=== PATIENT | female | born 1990 | race Hispanic/Latino ===

== ENCOUNTER 2022-01-09 10:10 | Emergency (ER) | payer SELFPAY ==
[2022-01-09] MEDS ORDERED: Clindamycin 150 MG CAP ONE (10:49)
[2022-01-09] MEDS ORDERED: traMADol HCl 50 MG TAB ONE (10:49)
== END 2022-01-09 10:55 | disposition home or self-care (01) ==
LOC: NAV ERS 10:10
DX: L73.2 Hidradenitis suppurativa (principal); L03.114 Cellulitis of left upper limb; F17.210 Nicotine dependence, cigarettes, uncomplicated
CPT/HCPCS: 87070; 87205; 99283

== ENCOUNTER 2022-01-24 11:52 | Emergency (ER) | payer SELFPAY ==
[2022-01-24] MEDS ORDERED: Ibuprofen 800 MG TAB ONE (12:13)
[2022-01-24] MEDS ORDERED: Ondansetron ODT 4 MG TAB ONE (12:16)
== END 2022-01-24 13:42 | disposition home or self-care (01) ==
LOC: NAV ERS 11:52
DX: B34.9 Viral infection, unspecified (principal); F17.290 Nicotine dependence, other tobacco product, uncomplicated
CPT/HCPCS: 87804; 99283; Q0162

== ENCOUNTER 2022-01-25 14:09 | Emergency (ER) | payer SELFPAY ==
[2022-01-25 14:42] LABS: #Basophils 0.1 thou/uL (0.0-0.2); #Lymphocytes 1.6 thou/uL (1.20-3.40); #Monocytes 1.1 thou/uL (0.11-0.59); #Neutrophils 8.2 thou/uL (1.40-6.50); %Basophils 1.3 % (0.0-1.0); %Eosinophils 0.3 % (0.0-10.0); %Lymphocytes 14.5 % (21.0-51.0); %Monocytes 9.9 % (0.0-10.0); %Neutrophils 74.1 % (42.0-75.0); Hemoglobin 13.6 g/dL (12.0-16.0); Mean Corpuscular Hemoglobin 30.2 pg (27.0-31.0); Mean Corpuscular Volume 91.7 fl (78.0-98.0); Mean Platelet Volume 10.3 fL (7.4-10.4); Platelet Count 210 10x3/uL (130-400); RBC Distribution Width 11.1 % (11.5-14.5); Red Blood Cell (RBC) Count 4.48 mill/uL (4.20-5.40); White Blood Cell (WBC) Count 11.1 10x3/uL (4.8-10.8)
[2022-01-25 14:59] LABS: ALT (SGPT) 25 U/L (8-55); AST (SGOT) 21 U/L (5-34); Albumin 4.1 g/dL (3.5-5.0); Alkaline Phosphatase 78 U/L (40-110); Anion Gap 16 mmol/L (10-20); BUN (Urea Nitrogen) 4 mg/dL (7.0-18.7); Bilirubin, Total 1.4 mg/dL (0.2-1.2); Calc. Creatinine Clearance 0 mL/min (70-130); Calcium 9.9 mg/dL (7.8-10.44); Carbon Dioxide 24 mmol/L (22-29); Chloride 95 mmol/L (98-107); Estimated GFR 80; Globulin 4.7 g/dL (2.4-3.5); Glucose 206 mg/dL (70-105); Potassium 3.8 mmol/L (3.5-5.1); Protein, Total 8.8 g/dL (6.0-8.3); Sodium 131 mmol/L (136-145)
[2022-01-25] MEDS ORDERED: Cefepime 2 GM VIAL ONE (15:09)
[2022-01-25] MEDS ORDERED: Sodium Chloride 0.9% 100 ML ONE (15:11)
[2022-01-25] MEDS ORDERED: Ondansetron PF 4 MG/2 ML Vial ONE (15:32)
[2022-01-25] MEDS ORDERED: Sodium Chloride 0.9% 500 ML ONE (15:32)
[2022-01-25 16:06] LABS: BHCG - Serum Negative (NEGATIVE); Pregs Control Bar Appear? YES (CONTROL BAR)
[2022-01-25] MEDS ORDERED: Acetaminophen 500 MG TAB ONE (16:28)
[2022-01-25 17:08] LABS: Bilirubin Negative (Negative); Blood, Urine Negative (Negative); Clarity Slightly Cloudy (Clear); Glucose, Urine (Dipstick) 100 mg/dL (Negative); Ketone, Urine 15 mg/dL (Negative); Leukocyte Trace (Negative); Nitrite Negative (Negative); Protein, Urine (Dipstick) 30 mg/dL (Neg-Trace); Urobilinogen > or = 8.0 mg/dL (Less than 2); pH, Urine 7.5 (5.0-9.0)
[2022-01-25 17:10] LABS: Pregnancy Test - Urine (BHCG) Negative (Negative); Pregu Control Background? CLEAR/WHITE (CLR/WHITE); Pregu Control Bar Appear? YES (CONTROL BAR)
[2022-01-25 17:17] LABS: Bacteria/HPF 1+ HPF (None Seen); RBC/HPF 0-3 HPF (0-3)
== END 2022-01-25 20:15 | disposition short-term general hospital (02) ==
LOC: NAV ERS 14:09
DX: A41.9 Sepsis, unspecified organism (principal); J10.1 Influenza due to other identified influenza virus with other respiratory manifestations; R00.0 Tachycardia, unspecified; F17.290 Nicotine dependence, other tobacco product, uncomplicated
CPT/HCPCS: 71046; 74176; 80053; 81003; 81015; 81025; 83605; 84484; 84702; 84703; 85025; 86140; 87040; 87070; 87077; 87081; 87086; 87149; 87186; 87205; 87430; 87804; 93005; 96361; 96365; 96366; 96375; J0692; J2405; J3370; J3490; J7030

== ENCOUNTER 2022-05-04 09:04 | Emergency (ER) | payer SELFPAY ==
[2022-05-04] MEDS ORDERED: Clindamycin 150 MG CAP ONE (09:51)
[2022-05-04] MEDS ORDERED: HYDROcodone/Acetaminophen 10/325 mg Tablet ONE (09:53)
== END 2022-05-04 10:15 | disposition home or self-care (01) ==
LOC: NAV ERS 09:04
DX: L73.2 Hidradenitis suppurativa (principal); F17.210 Nicotine dependence, cigarettes, uncomplicated
CPT/HCPCS: 99283

== ENCOUNTER 2022-06-15 08:28 | Emergency (ER) | payer SELFPAY ==
[2022-06-15] MEDS ORDERED: Lidocaine 1% w/Epinephrine 1:100K 20 ML VIAL ONE (08:42)
== END 2022-06-15 09:15 | disposition home or self-care (01) ==
LOC: NAV ERS 08:28
DX: L02.31 Cutaneous abscess of buttock (principal); F17.210 Nicotine dependence, cigarettes, uncomplicated
CPT/HCPCS: 10060